=== PATIENT | male | born 2005 | race Caucasian/White ===

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

== ENCOUNTER 2024-12-22 19:40 | Emergency (ER) | payer OTHER, SELFPAY ==
--- NOTE | ~2024-12-22 | CT_ITS ---
Non-contrast CT scan of the Abdomen and Pelvis Clinical indication: Abdominal pain Technique: 2.5 mm axial scans were obtained through the abdomen and pelvis without intravenous or or al contrast. Dose reduction technique was used on this scan by utilizing automated exposure control a nd iterative reconstruction technique. The dose-length product (DLP) was 198.48 mGy-cm. Findings: Images through the lung bases reveal no abnormalities. There is a 3.5 mm stone in the distal right ureter with mild right hydroureteronephrosis. No left rj al or left ureteral stone. No left hydronephrosis. The liver, spleen, pancreas, gallbladder, and adrenals appear normal. There is no aortic aneurysm. There is no evidence of bowel obstruction. Images through the pelvis were performed. There is no evidence of ascites or lymphadenopathy. Urinary bladder unremarkable. No pelvic mass seen. No ascites. Impression: 3.5 mm distal right ureteral stone with mild right hydroureteronephrosis. Reviewed, dictated and finalized at [facility]. Impression: 3.5 mm distal right ureteral stone with mild right hydroureteronephrosis.
--- OUTSIDE RECORDS SUMMARY | 2024-12-22 19:42 | XMS_ITS | Clinical Summary ---
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
--- OUTSIDE RECORDS SUMMARY | 2024-12-22 19:42 | XMS_ITS | Clinical Summary ---
Author Organization [facility] Address [address] [place] [id number] Care Team Providers Care Stock Worker And Deliverer Name Role Phone Unavailable Primary Care Provider Unavailabl e Allergies No known active allergies Medications No known medications Active Problems No known active problems Immunizations Immunization Administration Dates Next Due Influenza Quadrivalent, Preservative Free 2022 Family History Medical History Relation Name Comments No Known Problems Father Parkinsonism Maternal Grandfather No Known Problems Mother Relation Name Status Comments Brother Alive Father Alive Maternal Grandfather Maternal Grandmother Alive Mother Alive Paternal Grandfather Alive Paternal Grandmother Alive Sister Alive Social History Tobacco Use Types Packs/Day Years Used Date Smoking Tobacco: Never Smokeless Tobacco: Never Tobacco Cessation:Counseling Given: Not Answered Alcohol Use Standard Drinks/Week Comments Never 0 (1 standard drink = 0.6 oz pur e alcohol) Humiliation, Afraid, Rape, and Kick questionnair e Answer Date Recorded Within the last year, have y ou been afraid of your partner or ex-partner? No 02/16/2023 Within the last year, have y ou been humiliated or emotionally abused in other ways by your partner or ex-partner? No Within the last year, have y ou been kicked, hit, slapped, or otherwise physically hurt by your partner or ex-partner? No 02/16/2023 Within the last year, have y ou been raped or forced to have any kind of sexual activity by your partner or ex-partner? No 02/16/2023 Hunger Vital Sign Answer Date Recorded Within the past 12 months, y ou worried that your food would run out before you got the money to buy more. Never true 02/17/20 23 Within the past 12 months, t he food you bought just didn't last and you didn't have money to get more. Never true 02/16/2023 PRAPARE - Transportation Answer Date Re corded In the past 12 months, has l ack of transportation kept you from medical appointments or from getting medications? No 02/04 In the past 12 months, has l ack of transportation kept you from meetings, work, or from getting things needed for daily living? No 02/16/2023 Housing Stability Vital Sign Answer Kirby e Recorded In the last 12 months, was t here a time when you were not able to pay the mortgage or rent on time? No 02/16/2023 In the last 12 months, how many places have you lived? 2 02/16/2023 In the last 12 months, was t here a time when you did not have a steady place to sleep or slept in a correction (including now)? No 02/16/2023 Alcohol Use Answer Date Recorded Frequency of Alcohol Consumption Not on file 11/21/2023 Average Number of Drinks Not on file 024 Frequency of Binge Drinking Not on file 11/04 Alcohol Use Status Never 11/21/2023 Average alcohol consumption Not on file 11/04 Sex and Gender Information Value Date Recorded Sex Assigned at Not on file Legal Sex Male 1:23 PM CDT Gender Identity Not on file Sexual Orientation Not on file Last Filed Vital Signs Vital Sign Reading Time Taken Comments Blood Pressure 102/70 01/27/2024 9:51 AM CDT Pulse 79 01/27/2024 9:51 AM CDT Temperature 36.8 C (98.3 F) 01/27/2024 9:51 AM CDT Respiratory Rate 18 01/27/2024 9:51 AM CDT Oxygen Saturation 98% 01/27/2024 9:51 AM CDT Inhaled Oxygen Concentration - - Weight 62.7 kg (138 lb 3.2 oz) 01/27/2024 9:51 A M CDT Height 177.8 cm (5' 10) 01/27/2024 9:51 AM CDT Body Mass Index 19.83 01/27/2024 9:51 AM CDT Plan of Treatment Health Maintenance Due Date Last Done Comments HIV Screening 2004 Hepatitis C Screening ages 1 8 to 79 once 2004 MMR VACCINES (1 of 1 - Standard series) 2005 YEARLY WELLNESS EXAM 2007 DTaP/Tdap/Td Vaccines (1 - Tdap) 2011 Varicella Vaccine (1 of 2 - 13+ 2-dose series) 2017 HPV VACCINES (1 - Male 3-dos e series) 2019 Meningococcal B Vaccine (1 o f 2 - Standard) 2020 ADULT TETANUS 2023 HEPATITIS B VACCINES (1 of 3 - 19+ 3-dose series) 2023 COVID-19 Immunization ( - 2023- season) 2024 DEPRESSION SCREENING 07/18/2024 07/18/2023, 02/16/2023 Influenza Vaccine 01/04/2025 03/30/2023 Zoster Vaccine (Recombinant Vaccine) (1 of 2) 2054 HEPATITIS A VACCINES Aged Out No long er eligible based on patient's age to complete this topic HIB VACCINES Aged Out No longer eligi ble based on patient's age to complete this topic IPV VACCINES Aged Out No longer eligi ble based on patient's age to complete this topic MENINGOCOCCAL VACCINE Aged Out No raul julia eligible based on patient's age to complete this topic Pneumococcal Vaccine: Peds t o 50 & At-Risk Patients Aged Out No longer eligible based on patient's age to complete this topic ROTAVIRUS VACCINES Aged Out No longer eligible based on patient's age to complete this topic Insurance [facility]
--- OUTSIDE RECORDS SUMMARY | 2024-12-22 19:42 | XMS_ITS | Encounter Summary ---
Author Organization [facility] Address 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
--- OUTSIDE RECORDS SUMMARY | 2024-12-22 19:42 | XMS_ITS | Encounter Summary ---
Author Organization [facility] Address [address] [place] [address] Care Team Providers Care Quantitative Analyst Marketing Name Role Phone Unavailable Primary Care Provider Unavailabl e Encounter Details Date Type Department Care Team (Late st Contact Info) Description 2004 Outpatient Historical [facility] Pediatric[facility] - [facility] [address] [facility] [address] [address] Chanelle Turner MD 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
--- OUTSIDE RECORDS SUMMARY | 2024-12-22 19:42 | XMS_ITS | Encounter Summary ---
Author Organization [facility] Address [address] [facility] Attn: Epic Prelude [place] [address] Care Team Providers Care Manager Telecom Name Role Phone Unavailable Primary Care Provider Unavailabl e Encounter Details Date Type Department Care Team (Late st Contact Info) Description 2004 Inpatient Historical Chanelle Turner MD [address] [place] [id number] [facility]ORN IN H[facility]-NO C/DELIVERY (Primary Dx) Social History Tobacco Use Types Packs/Day Years Used Date Smoking Tobacco: Never Assessed Sex and Gender Information Value Date Recorded Sex Assigned at Not on file 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
--- OUTSIDE RECORDS SUMMARY | 2024-12-22 19:42 | XMS_ITS | Encounter Summary ---
Author Organization [facility] Address 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
[2024-12-22 19:44] VITALS: BP 144/102; PULSE 69; RESP 18; TEMP 36.3; O2SAT 100
[2024-12-22 19:54] VITALS: BP 109/60; PULSE 64; RESP 27; O2SAT 100
[2024-12-22 20:01] VITALS: BP 112/67; PULSE 74; RESP 27; O2SAT 100
[2024-12-22] MEDS: KETOROLAC 30 MG/ML VIAL (*BKC) IV PUSH (20:42)
[2024-12-22] MEDS: ONDANSETRON INJ 4 MG/2 ML VIAL IV PUSH (20:43)
[2024-12-22] MEDS: SODIUM CHLORIDE 0.9% IV 1,000 ML 999 ML IV CONT (20:43)
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
[2024-12-22 20:49] LABS: Hematocrit 43.8 % (42.0-52.0); Hemoglobin 14.9 g/dL (14.0-18.0); Immature Granulocyte Percent A 0.3 % (0-0.5); Lymphocytes Absolute Auto 2.17 K/mm3 (0.9-3.2); Mean Corpuscular HGB Conc 34.0 g/dl (32-36); Mean Corpuscular Hemoglobin 29.9 pg (26-34); Mean Corpuscular Volume 87.8 fl (80-100); Nucleated Red Blood Cells Absolute Auto 0.000 K/mm3 (0.0-0.012); Nucleated Red Blood Cells Perc 0.0 % (0.0-0.2); Platelet Count Result 246 k/mm3 (150-375); Red Blood Count 4.99 M/mm3 (4.6-6.20); White Blood Count 10.3 K/mm3 (4.5-10.0)
[2024-12-22] MEDS: HYDROmorphone HCL INJ (*CRX) 2 MG/ML VIAL 0.5 MG IV PUSH (20:52)
[2024-12-22 21:00] VITALS: BP 119/70; PULSE 66; RESP 18; O2SAT 100
[2024-12-22 21:08] LABS: Alanine Aminotransferase 29 U/L (6-50); Albumin Level 5.0 g/dL (3.5-5.1); Alkaline Phosphatase 82 U/L (38-126); Anion Gap 16 mmol/L (4-12); Aspartate Amino Transferase 43 U/L (17-59); Bilirubin,Total 1.1 mg/dL (0.2-1.3); Blood Urea Nitrogen 18 mg/dL (9-20); Calcium 9.7 mg/dL (8.4-10.2); Carbon Dioxide 21 mmol/L (22-30); Chloride 100 mmol/L (98-107); Estimated CRCL calculation 77 ml/min; Estimated Glomerular Filt Rate > 60; Glucose 114 mg/dL (65-110); Potassium 3.3 mmol/L (3.4-5.0); Sodium 137 mmol/L (137-145); Total Protein 7.9 g/dL (6.3-8.2)
--- OUTSIDE RECORDS SUMMARY | 2024-12-22 21:27 | XMS_ITS | Encounter Summary ---
Author Organization [facility] Address 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
--- OUTSIDE RECORDS SUMMARY | 2024-12-22 21:27 | XMS_ITS | Encounter Summary ---
Author Organization [facility] Address [address] [facility] Attn: Epic Prelude [place] [address] Care Team Providers Care Extrusion Die Coordinator Name Role Phone Unavailable Primary Care Provider Unavailabl e Encounter Details Date Type Department Care Team (Late st Contact Info) Description 2004 Inpatient Historical Chanelle Turner MD [address] [place] [id number] [facility]INGL BORN IN HOSP-NO C/DELIVERY (Primary Dx) Social History Tobacco Use Types Packs/Day Years Used Date Smoking Tobacco: Never Assessed Sex and Gender Information Value Date Recorded Sex Assigned at Not on file 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
--- OUTSIDE RECORDS SUMMARY | 2024-12-22 21:27 | XMS_ITS | Encounter Summary ---
Author Organization [facility] Address 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
--- OUTSIDE RECORDS SUMMARY | 2024-12-22 21:27 | XMS_ITS | Clinical Summary ---
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
--- OUTSIDE RECORDS SUMMARY | 2024-12-22 21:27 | XMS_ITS | Encounter Summary ---
Author Organization [facility] Address [address] [place] [address] Care Team Providers Care Bomb Loader Name Role Phone Unavailable Primary Care Provider Unavailabl e Encounter Details Date Type Department Care Team (Late st Contact Info) Description 2004 Outpatient Historical [facility] Pediatrics - [facility] [address] [facility] [address] [address] Chanelle Turner MD 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
--- OUTSIDE RECORDS SUMMARY | 2024-12-22 21:27 | XMS_ITS | Clinical Summary ---
Author Organization [facility] Address [address] [place] [address] Care Team Providers Care Transportation Agent Name Role Phone Unavailable Primary Care Provider [...] place to sleep or slept in a penitentiary (including now)? No 02/16/2023 Alcohol Use Answer [...] patient's age to complete this topic Insurance [facility]
[2024-12-22 21:30] VITALS: BP 108/62; PULSE 75; RESP 13; O2SAT 98
[2024-12-22 21:52] LABS: Add Urine Microscopic? YES; Appearance Urine Cloudy (Clear); Glucose Urine UA Negative (Negative); Leukocyte Esterase Ur Trace LEU/UL (Negative); Nitrate Urine Negative (Negative); Specific Grav Ur 1.020 (1.001-1.035)
[2024-12-22 22:06] VITALS: BP 119/51; PULSE 65; RESP 14; O2SAT 99
[2024-12-22 23:28] LABS: Creatine Kinase 206 U/L (55-170)
== END 2024-12-23 01:28 | disposition home or self-care (01) ==
PROVIDERS: Emergency Provider Registered Nurse Emergency; PCP Pediatrics
DX: N13.2 Hydronephrosis with renal and ureteral calculous obstruction (principal)
CPT/HCPCS: 36415; 74176; 80053; 81001; 82550; 83605; 85025; 87086; 96361; 96374; 96375; 99284; J1171; J1885; J2405; J7030

== ENCOUNTER 2024-12-23 06:06 | Emergency (ER) | payer OTHER, SELFPAY ==
--- OUTSIDE RECORDS SUMMARY | 2024-12-23 06:07 | XMS_ITS | Clinical Summary ---
Author Organization [facility] Address [address] [place] [address] Care Team Providers Care Restaurant Assistant Name Role Phone Unavailable Primary Care Provider [...] place to sleep or slept in a skilled nursing (including now)? No 02/16/2023 Alcohol Use Answer [...] patient's age to complete this topic Insurance [facility]
--- OUTSIDE RECORDS SUMMARY | 2024-12-23 06:07 | XMS_ITS | Encounter Summary ---
Author Organization [facility] Address [address] [facility] Attn: Epic [place] [address] Care Team Providers Care Certified Dialysis Technician Name Role Phone Unavailable Primary Care Provider Unavailabl e Encounter Details Date Type Department Care Team (Late st Contact Info) Description 2004 Inpatient Historical Chanelle Turner MD [address] [place] [phone] SINGL BORN IN HOSP-NO C/DELIVERY (Primary Dx) Social History Tobacco Use Types Packs/Day Years Used Date Smoking Tobacco: Never Assessed Sex and Gender Information Value Date Recorded Sex Assigned at Not on file 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
--- OUTSIDE RECORDS SUMMARY | 2024-12-23 06:07 | XMS_ITS | Encounter Summary ---
Author Organization [facility] Address 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
--- OUTSIDE RECORDS SUMMARY | 2024-12-23 06:07 | XMS_ITS | Encounter Summary ---
Author Organization [facility] Address 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
--- OUTSIDE RECORDS SUMMARY | 2024-12-23 06:07 | XMS_ITS | Encounter Summary ---
Author Organization [facility] Address [address] [place] [address] Care Team Providers Care Direct Marketing Analyst Name Role Phone Unavailable Primary Care Provider Unavailabl e Encounter Details Date Type Department Care Team (Late st Contact Info) Description 2004 Outpatient Historical [facility] Pediatrics - [facility] [address] [address] Chanelle Turner MD 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
--- OUTSIDE RECORDS SUMMARY | 2024-12-23 06:07 | XMS_ITS | Clinical Summary ---
Author Organization [facility] Address [address] [facility] Attn: Epic Prelude ADT [place] [address] Care Team Providers Care Ict Analyst Name Role Phone Unavailable Primary Care Provider Unavailabl e Social History Tobacco Use Types Packs/Day Years Used Date Smoking Tobacco: Never Assessed Sex and Gender Information Value Date Recorded Sex Assigned at Not on file Legal Sex Male 4:05 AM FAMILY ASSISTANT Gender Identity Not on file Sexual Orientation Not on file Plan of Treatment Health Maintenance Due Date Last Done Comments CHLAMYDIA SCREENING (ANNUAL) 11-24 YEARS 2015 HPV VACCINES (1 - Male 3-dose series) 2019 DTAP/TDAP/TD VACCINES (1 - Tdap) 2023 HEPATITIS B VACCINES (1 of 3 - 19+ 3-dose series) 03/06 INFLUENZA VACCINE (#1) 2025
[2024-12-23 06:12] VITALS: BP 117/63; PULSE 67; RESP 18; TEMP 36.2; O2SAT 100
--- NOTE | 2024-12-23 06:16 | ED_ITS ---
HPI - Male Genitourinary General Chief complaint: Urogenital-Male Stated complaint: Kidney stone pain-here earlier Time Seen by Provider: 12/23/24 06:14 History of Present Illness HPI Narrative: 19-year-old male presenting to the emergency department for repeat evaluation after being diagnosed with a kidney stone late last night. He was seen in this emergency department and had a CT scan, laboratory assessments and workup underway. He has a stone in the ureterovesicular junction on the right side that is causing her some pain. Patient went home has been taking 800 mg of ibuprofen without any significant relief and was vomiting last night. Presents to the ER for pain control. No family history of kidney stones, no previous kidney stones. No trauma or injury. No fever, chills or new urinary complaints. No change in clinical history since discharge earlier. Related Data Allergies Allergy/AdvReac Type Severity Reaction Status Date / Time No Known Allergies Allergy Mild Verified 12/23/24 06:07 Review of Systems 2 Review of Systems: As reviewed above in HPI [facility] Past Medical History Medical History No significant past medical history Surgical History Surgical History No significant past surgical history Family History Family History Father Alive and well Mother Alive and well Social History Social History Smoking status: Never smoker Tobacco type: cigarettes Second hand tobacco smoke exposure: No Alcohol intake: never Substance use: never Substance use type: does not use Living arrangements: with family Occupation/Education: student Gender identity (if verbalized by the patient): Male Exam 2 Narrative: GENERAL: Uncomfortable appearing but not any acute distress HEAD: [Normocephalic, atraumatic.] EYES: [PERRLA and EOMI.] ENT: Nares clear, no rhinorrhea or epistaxis. Mucous membranes moist. NECK: Supple. CHEST: [Clear to auscultation. No respiratory distress.] HEART: [Regular rate and rhythm]. No murmur heard. [Normal peripheral pulses.] ABDOMEN: [Soft, nondistended], reproducible tenderness to palpation the right flank, [No rigidity or guarding] EXTREMITIES: Normal range of motion. [No edema.] SKIN: Warm, dry, no rash. NEURO: [No focal deficits]. Alert and oriented [x3.] PSYCH: [Normal mood and affect.] Course Vital Signs Vital signs: Vital Signs Temperature 36.2 C L 12/23/24 06:12 Pulse Rate 67 12/23/24 06:12 Respiratory Rate 18 12/23/24 06:12 Blood Pressure 117/63 12/23/24 06:12 Pulse Oximetry 100 12/23/24 06:12 Oxygen Delivery Room Air 12/23/24 06:12 Temperature 36.2 C L 12/23/24 06:12 Pulse Rate 67 12/23/24 06:12 Respiratory Rate 18 12/23/24 06:12 Blood Pressure 117/63 12/23/24 06:12 Pulse Oximetry 100 12/23/24 06:12 Oxygen Delivery Room Air 12/23/24 06:12 MDM - Male Genitourinary MDM Narrative Medical decision making narrative: 19-year-old male presenting to the emergency department for repeat evaluation after being diagnosed with a kidney stone late last night. He was seen in this emergency department and had a CT scan, laboratory assessments and workup underway. He has a stone in the ureterovesicular junction on the right side that is causing her some pain. Patient went home has been taking 800 mg of ibuprofen without any significant relief and was vomiting last night. Presents to the ER for pain control. No family history of kidney stones, no previous kidney stones. No trauma or injury. No fever, chills or new urinary complaints. No change in clinical history since discharge earlier. Patient has reproducible tenderness in the right flank consistent with the site of his kidney stone pain. Hemodynamically stable, will be provided IV pain control medications including Dilaudid and was given Zofran 2 L of fluid. He was given Levsin for ureter spasm and more pain control. Repeat laboratory studies obtained. We obtain the CT report from yesterday that shows small 3.7 mm kidney stone without any signs of obstruction. Patient will likely be able to pass this without difficulty but will be given pain control medications upon discharge for added control until then and with Urology follow-up. Patient felt significant improvement after initial round of treatment. Laboratory studies show a minor bump in creatinine but he was given additional 2 L of fluid here. Patient felt much better after reassessment and was stable for discharge home and will be sent home with some oxycodone in addition to his previous prescription medications and Levsin for pain control. Patient comfortable with the plan and discharged home with Urology follow-up. Medical Records Attestation: I reviewed the patient's medical records. Lab Data Attestation: I reviewed the patient's lab results. 12/23/24 06:22 12/23/24 06:22 Labs: Lab Results 12/23/24 Range/Units 06:22 WBC 11.6 H (4.5-10.0) K/mm3 RBC 4.57 L (4.6-6.20) M/mm3 Hgb 13.8 L (14.0-18.0) g/dL Hct 40.4 L (42.0-52.0) % MCV 88.4 (80-100) fl MCH 30.2 (26-34) pg MCHC 34.2 (32-36) g/dl RDW 11.6 (11.5-14.5) % Plt Count 218 (150-375) k/mm3 MPV 11.3 H (7.4-10.4) fl Immature Gran % (Auto) 0.3 (0-0.5) % Neut % (Auto) 83.4 H (45.5-73.1) % Lymph % (Auto) 8.7 L (18.3-44.2) % [place] % (Auto) 7.1 (2.6-8.5) % Eos % (Auto) 0.0 (0-4.4) % Baso % (Auto) 0.5 (0.2-1.2) % Lymph # (Auto) 1.01 (0.9-3.2) K/mm3 [place] # (Auto) 0.8 H (0.1-0.6) K/mm3 Eos # (Auto) 0.0 (0-0.3) K/mm3 Baso # (Auto) 0.1 (0.0-0.1) K/mm3 Abs Immat Gran (auto) 0.04 H (0.00-0.031) K/mm3 Absolute Neuts (auto) 9.7 H (1.3-6.7) K/mm3 Absolute Nucleated RBC 0.000 (0.0-0.012) K/mm3 Nucleated RBC % 0.0 (0.0-0.2) % Sodium 133 L (137-145) mmol/L Potassium 4.1 (3.4-5.0) mmol/L Chloride 100 (98-107) mmol/L Carbon Dioxide 25 (22-30) mmol/L Anion Gap 8 (4-12) mmol/L BUN 19 (9-20) mg/dL Creatinine 1.64 H (0.7-1.3) mg/dL Estim Creat Clear Calc 61 ml/min Estimated GFR 54 L (59 - ) Glucose 118 H (65-110) mg/dL Calcium 9.4 (8.4-10.2) mg/dL Total Bilirubin 1.3 (0.2-1.3) mg/dL AST 35 (17-59) U/L ALT 21 (6-50) U/L Alkaline Phosphatase 86 (38-126) U/L Total Protein 7.0 (6.3-8.2) g/dL Albumin 4.3 (3.5-5.1) g/dL Imaging Data Attestation: I personally reviewed and interpreted this imaging study as follows: My impression: 3.7mm UVJ stone Discharge Plan Discharge Clinical Impression: Nephrolithiasis Patient Disposition: Home Condition: Stable Instructions: Antibiotic Form Additional Instructions: We will send you home with stronger pain medicines to help control your kidney stone pain. The kidney stone is almost towards her bladder at this time and then will be able to pass much more easily. Follow-up with Urology on outpatient basis. Return with intractable pain or new concerns. Patient Language: Cook Islander Prescriptions: New ketorolac 10 mg tablet 10 mg PO Q8H PRN (Reason: pain) 5 Days Qty: 20 0RF Rx Instructions: maximum total duration of 5 days from all oral, intranasal, or parenteral formulations ondansetron 4 mg tablet,disintegrating 4 mg PO Q8H PRN (Reason: nausea and vomiting) Qty: 10 0RF oxycodone 5 mg tablet 5 mg PO Q8H PRN (Reason: pain) Qty: 10 0RF No Action (DME) inhalational spacing device Spacer See Rx Instructions .ROUTE .MEDSUPPLY Qty: 1 0RF Rx Instructions: As directed azelastine 137 mcg (0.1 %) aerosol,spray 137 mcg NASAL Q12H Qty: 30 0RF Rx Instructions: administer into each nostril cefuroxime axetil 500 mg tablet 500 mg PO Q12H Qty: 14 0RF albuterol sulfate [Ventolin HFA] 90 mcg/actuation HFA aerosol inhaler 2 puff INHALATION QID PRN (Reason: shortness of breath or wheezing) Qty: 8.5 1RF ipratropium bromide 42 mcg (0.06 %) spray,non-aerosol 2 spray intranasal TID Qty: 15 2RF Rx Instructions: administer into each nostril loratadine [Claritin] 10 mg tablet 10 mg PO DAILY Qty: 30 2RF doxycycline hyclate 100 mg tablet 100 mg PO BID 5 Days Qty: 10 0RF tamsulosin 0.4 mg capsule 0.4 mg PO HS Qty: 20 0RF sulfamethoxazole-trimethoprim 800-160 mg tablet 1 tablet PO Q12H Qty: 28 0RF Follow-up/Referrals: Lexx Mary MD [Physician] - 3 Days () Deshawn Stanford MD [Primary Care Provider] - Time of Disposition: 07:02
[2024-12-23] MEDS: LACTATED RINGERS 1,000 ML 999 ML IV CONT ×2 (06:23→06:24)
[2024-12-23] MEDS: HYDROmorphone HCL INJ (*CRX) 2 MG/ML VIAL 1 MG IV PUSH (06:24)
[2024-12-23] MEDS: HYOSCYAMINE SULFATE 0.125 MG TABLET PO (06:25)
[2024-12-23] MEDS: ONDANSETRON INJ 4 MG/2 ML VIAL IV PUSH (06:25)
[2024-12-23 06:26] LABS: Hematocrit 40.4 % (42.0-52.0); Hemoglobin 13.8 g/dL (14.0-18.0); Immature Granulocyte Percent A 0.3 % (0-0.5); Lymphocytes Absolute Auto 1.01 K/mm3 (0.9-3.2); Mean Corpuscular HGB Conc 34.2 g/dl (32-36); Mean Corpuscular Hemoglobin 30.2 pg (26-34); Mean Corpuscular Volume 88.4 fl (80-100); Nucleated Red Blood Cells Absolute Auto 0.000 K/mm3 (0.0-0.012); Nucleated Red Blood Cells Perc 0.0 % (0.0-0.2); Platelet Count Result 218 k/mm3 (150-375); Red Blood Count 4.57 M/mm3 (4.6-6.20); White Blood Count 11.6 K/mm3 (4.5-10.0)
[2024-12-23 06:46] LABS: Alanine Aminotransferase 21 U/L (6-50); Albumin Level 4.3 g/dL (3.5-5.1); Alkaline Phosphatase 86 U/L (38-126); Anion Gap 8 mmol/L (4-12); Aspartate Amino Transferase 35 U/L (17-59); Bilirubin,Total 1.3 mg/dL (0.2-1.3); Blood Urea Nitrogen 19 mg/dL (9-20); Calcium 9.4 mg/dL (8.4-10.2); Carbon Dioxide 25 mmol/L (22-30); Chloride 100 mmol/L (98-107); Estimated CRCL calculation 61 ml/min; Estimated Glomerular Filt Rate 54; Glucose 118 mg/dL (65-110); Potassium 4.1 mmol/L (3.4-5.0); Sodium 133 mmol/L (137-145); Total Protein 7.0 g/dL (6.3-8.2)
[2024-12-23 06:57] VITALS: BP 119/73; PULSE 61; RESP 18; O2SAT 99
--- NOTE | 2024-12-23 06:58 | PC.NURSE ---
Pt states that his pain level is a 2/10 and is more comfortable. ERP made aware.
== END 2024-12-23 07:48 | disposition home or self-care (01) ==
PROVIDERS: Emergency Provider Student in an Organized Health Care Education/Training Program; PCP Pediatrics
DX: N20.1 Calculus of ureter (principal)
CPT/HCPCS: 36415; 80053; 85025; 96361; 96374; 96375; 99284; A9270; J1171; J2405; J7120

== ENCOUNTER 2024-12-27 00:07 | Day surgery (SDC) | payer OTHER, SELFPAY ==
--- NOTE | 2024-12-26 16:57 | PC.NURSE ---
Report to the Outpatient Waiting Room, entrance under the green pavilion located off [facility], at time _1030 on date 12/27/24 . Planned Procedure Time: __1230 .? Time changes happen often and if your time is changed the preop area will call you the afternoon before. - You and your visitor will be asked to self-screen and do not enter if you have any COVID symptoms. Please call surgeon if you need to reschedule. - A mask is optional within the hospital at this time. Patients may have clear liquids (water, carbonated beverages, clear teas, apple juice) until 3 hours prior to surgery with a maximum of 20 ounces. - No food from midnight until time of surgery and no smoking, or chewing tobacco (or any form of nicotine). No chewing gum, candy or mints. Take only the following medications with a SIP of water on the morning of surgery: HYDROCODONE, TORADOL, ZOFRAN IF NEEDED DO NOT STOP ANY OF YOUR OTHER PRESCRIPTION MEDICATIONS PRIOR TO SURGERY EXCEPT THE FOLLOWING Hold all vitamins and supplements for 3 days per anesthesiologist. Medications to discontinue per physician N/A Date to take last dose N/A Please no make-up, nail english, hairspray, perfume, deodorant, or body powder the day of surgery.? No jewelry (including any body piercings) or valuables the day of surgery, leave them at home.? Please take a shower or bath the night before, or the morning of, surgery with an antibacterial soap.? Wear comfortable, loose fitting clothing.? - Jewelry must be removed prior to entering the operating room.? Rings and piercings that are not removed may be cut off. - The hospital will not accept responsibility for valuables.? - Please leave all valuables, including medications, at home the day of surgery. If you are going home after surgery, a licensed long haul truck driver must drive you home.? - NO public transportation without another adult if you receive anesthesia. - We recommend that an adult stay with you for 24 hours following discharge. - We also recommend that you do not drive, make important decision, drink alcoholic beverages, or take any drugs that were not prescribed by your health care provider for at least 24 hours after your discharge time. Follow any additional instructions given to you from your surgeon. Telephone instructions given to ___SCOTT and asked if any additional questions and then verbalized understanding. Patient advised to call surgeon office or pre surgery nurse liaison [phone] if any additional questions.
[2024-12-27] VITALS (7 sets, daily range): BP systolic 109–124; BP diastolic 61–80; PULSE 51–73; RESP 12–18; TEMP 36.2–36.8; O2SAT 99–100
--- NOTE | ~2024-12-27 | XR_ITS ---
EXAMINATION: XR retrograde pyelo w/stent RT DATE: 12/27/2024 11:05 INDICATION: Right internal ureteral stent placement TECHNIQUE: Fluoroscopic images from a right internal ureteral stent placement are submitted for ronel jc 19 seconds of fluoroscopy time. FINDINGS: Initial images demonstrate placement of a guidewire in the right ureter. Stent is not identified duri ng the course of the study. Visualized bowel gas pattern is nonobstructive. IMPRESSION: 1. Right retrograde pyelogram with guidewire placement. Images did not include stent placement. Pleas e refer to real-time procedural findings for details. Reviewed, dictated and finalized at location A. IMPRESSION: 1. Right retrograde pyelogram with guidewire placement. Images did not include stent placement. Please refer to real-time procedural findings for details.
--- OUTSIDE RECORDS SUMMARY | 2024-12-27 00:09 | XMS_ITS | Encounter Summary ---
Author Organization [facility] Address [address] [place] [address] Care Team Providers Care Placement Officer Name Role Phone Unavailable Primary Care Provider Unavailabl e Encounter Details Date Type Department Care Team (Late st Contact Info) Description [address] [facility] Pediatrics - [facility] [address] [facility] [address] [address] Chanelle Turner MD 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
--- OUTSIDE RECORDS SUMMARY | 2024-12-27 00:09 | XMS_ITS | Clinical Summary ---
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
--- OUTSIDE RECORDS SUMMARY | 2024-12-27 00:09 | XMS_ITS | Encounter Summary ---
Author Organization [facility] Address 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
--- OUTSIDE RECORDS SUMMARY | 2024-12-27 00:09 | XMS_ITS | Encounter Summary ---
Author Organization [facility] Address 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
--- OUTSIDE RECORDS SUMMARY | 2024-12-27 00:09 | XMS_ITS | Encounter Summary ---
Author Organization [facility] Address [address] Attn: Epic [place] [address] Care Team Providers Care Paperhanger Name Role Phone Unavailable Primary Care Provider Unavailabl e Encounter Details Date Type Department Care Team (Late st Contact Info) Description 2004 Inpatient Historical Chanelle Turner MD [address] [place] [address] SINGL BORN IN HOSP-NO C/DELIVERY (Primary Dx) Social History Tobacco Use Types Packs/Day Years Used Date Smoking Tobacco: Never Assessed Sex and Gender Information Value Date Recorded Sex Assigned at Not on file 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
--- OUTSIDE RECORDS SUMMARY | 2024-12-27 00:09 | XMS_ITS | Clinical Summary ---
Author Organization [facility] Address [address] [place] [address] Care Team Providers Care Senior Net Application Developer Name Role Phone Unavailable Primary Care Provider [...] place to sleep or slept in a prison (including now)? No 02/16/2023 Alcohol Use Answer [...] patient's age to complete this topic Insurance [facility]
--- NOTE | 2024-12-27 06:36 | WPDHPUPDATE1 ---
History and Physical Update Update Date/Time: 12/27/24 06:36 History and Physical has been reviewed, including an updated exam of the patient. There are NO changes in the patient's condition. Risks, benefits, and alternatives have been discussed and questions answered. Patient agrees to proceed with procedure.
[2024-12-27] MEDS: LACTATED RINGERS 1,000 ML 30 ML IV CONT (10:20)
--- NOTE | 2024-12-27 10:31 | P.PNAN_ITS ---
Anes - Initial Pre Proc Eval Procedure: Operation Date: 12/27/24 12:30 Proposed Procedures p Cystoscopy, Right Retrograde Pyelogram, Right Ureteroscopy, Possible Holmium Laser Lithotripsy, Right Stone Extraction, Possible Right Stent Placement - Lexx Mary MD Date/Time: 12/27/24 10:31 Surgeon: Lexx Mary MD Pre Op Diagnosis: Kidney Stone- right Patient Data Age: 19 Gender: M Height: 1.78 m Weight: 67 kg Last Vital Signs Temp 36.8 C 12/27/24 10:00 Pulse 73 12/27/24 10:00 Resp 18 12/27/24 10:00 BP 122/65 12/27/24 10:00 Pulse Ox 100 12/27/24 10:00 O2 Del Method Room Air 12/27/24 10:00 Allergies Allergy/AdvReac Type Severity Reaction Status Date / Time No Known Allergies Allergy Mild Verified 12/27/24 10:11 Home Medications ?Medication ?Instructions ?Recorded ?Confirmed ?Type inhalational spacing device #1 ea 10/21/20 Rx ketorolac 10 mg tablet 10 mg PO Q8H PRN pain 5 days #20 12/23/24 12/26/24 Rx tabs ondansetron 4 mg disintegrating 4 mg PO Q8H PRN nausea and 12/23/24 12/26/24 Rx tablet vomiting #10 tabs oxycodone 5 mg tablet 5 mg PO Q8H PRN pain #10 tabs 12/23/24 12/26/24 Rx sulfamethoxazole 800 1 tablet PO Q12H #28 tabs 12/23/24 12/26/24 Rx mg-trimethoprim 160 mg tablet tamsulosin 0.4 mg capsule 0.4 mg PO HS #20 caps 12/23/24 12/26/24 Rx Patient hx anesthesia problems: none Family hx anesthesia problems: none Results Review: All pre-operative results and documents have been reviewed as part of the pre- operative evaluation. [facility] Past Medical History Medical History No significant past medical history Surgical History Surgical History No significant past surgical history Family History Family History Father Alive and well Mother Alive and well Social History Social History Smoking status: Never smoker Tobacco type: cigarettes Second hand tobacco smoke exposure: No Alcohol intake: former Substance use: former Substance use type: marijuana Other substance usage details: LAST USE 05/2024-OCCAS PRIOR TO THIS Living arrangements: with family Occupation/Education: student Gender identity (if verbalized by the patient): Male Spiritual care concerns: No Anes - Eval Final PreProcedure Day of Procedure 12/27/24 10:31 Patient weight: normal Heart: regular rate and rhythm Lungs: clear to auscultation Airway: Mallampati scale class 1 Neurological: alert and oriented Last oral intake: >/= 8 hours ASA classification: II Emergent: no Anesthetic plan: proceed Anesthesia type and monitoring: general LMA and standard monitoring Results Review: All pre-operative results and documents have been reviewed as part of the pre- operative evaluation. Informed Consent: The patient's anesthetic plan and its attendant risks and benefits were discussed with the patient/family/POA. Questions were solicited and answers provided to the satisfaction of the patient/family/POA.
[2024-12-27] MEDS: ceFAZolin 2 GM in SODIUM CHLORIDE 0.9% IV 50 ML 100 ML IVPB (10:43)
[2024-12-27] MEDS: LIDOCAINE 2% GEL UROJET 10 ML PKG MUCOUS MEM (10:59)
--- NOTE | 2024-12-27 11:00 | S_PTH ---
PATIENT: Sean Villalobos LOC: [facility] U#:[id number] AGE/SX: 19/M ROOM: RE12/27/[address]: Lexx Mary MD : 2005 BED: DIS: 12/27/2024 SPEC #: [id number] RECD: 12/27/24 11:48 STATUS: GRICELDA REQ #: [id number] DARRYL: 12/27/24 11:[address]: Lexx Mary DEPT: [facility] Surgical RECD BY: Lyn Mcwilliams ENTERED: 12/27/24 11:48 SP TYPE: Surgical OTHR DR: Deshawn Stanford MD Tissues: A - Stone Procedures: Gross Exam Level 1 Crystalline Analysis
--- NOTE | 2024-12-27 11:15 | W.PM.PROC2 ---
Procedure Note - Detailed Date of Procedure 12/27/24 Pre-op Diagnosis Right ureteral stone Post-op Diagnosis Same Procedure Performed Cystoscopy, right ureteroscopy with stone extraction Surgeon Lexx Mary MD Anesthesia General Description of Procedure The patient was brought to the operative suite where he is prepped and draped in a routine sterile fashion while in the dorsal lithotomy position after the uneventful induction of a general LMA anesthetic. A 19F rigid cystoscope was placed in the bladder. There are no urethral strictures. He has essentially no prostatic hyperplasia. The bladder mucosa was endoscopically normal without hyperemia or neoplasm. There was a single, orthotopic ureteral orifice bilaterally. A 0.035 glidewire was advanced into the right renal pelvis under fluoroscopy. The distal ureter was dilated with an 8F/10F ureteral dilator. Ureteroscopy was undertaken with a short, tapered, semi-rigid ureteroscope and the small, right distal ureteral stone was extracted with ease using a 1.9F Escape disposable stone basket. Due to the ease of this manipulation I opted not to place a ureteral stent. The patient's bladder was emptied and was taken to the recovery room having tolerated this procedure well. Packing No Pathology None sent Complications No immediate complications Condition Stable
== END 2024-12-27 12:30 | disposition home or self-care (01) ==
PROVIDERS: PCP Pediatrics; Visit Provider Urology
PROC: (CPT 52352; principal; 2024-12-27 12:30)
DX: N20.1 Calculus of ureter (principal); F12.90 Cannabis use, unspecified, uncomplicated; Z79.891 Long term (current) use of opiate analgesic
CPT/HCPCS: 52352; 74420; 82365; 88300; J0690; C1769; J1100; J2405; J2704; J7120; Q9966